=== PATIENT | female | born 1955 | race Caucasian/White ===

== ENCOUNTER → 2019-11-17 | Day surgery (SDC) | payer BC ==
[~2019-11-17] MED LIST: ACETAMINOPHEN325 M1 PO; ALEVE220 M1 PO; CALCIUM PO; FAMOTIDINE20 MG PO; FENTANYL CITRATE/PF 100MCG/2 ML INJ ONE; GABAPENTIN100 MG PO; IBUPROFEN PM C1 EACH PO; LIDOCAINE HCL 2% LOCAL INJ 5 ML SDV VIAL INJ ONE; MIDAZOLAM HCL 2 MG/2 ML VIAL ONE; MULTIVITAMINS1 EAC7 PO; PROPOFOL IV EMULSION 10 MG/ML 20 ML VIAL ONE; ULTRAM50 MG PO; VITAMIN B122500 MCG PO
--- OUTSIDE RECORDS SUMMARY | 2019-11-17 07:31 | XMS REPORT ---
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 Allergies, Adverse Reactions, Alerts This patient has no known allergies or adverse reactions. Medications This patient has no known medications. Results Test Description Test Time Test Comments Text Results Atomic Results Result Comments SCR MAMM BILATERAL VERONICA CAD DIGITAL 2019-10-03 12:42:50 - SCR MAMM BILATERAL VERONICA CAD DIGITALBILATERAL DIGITAL SCREENING MAMMOGRAM 3D/2D WITH CAD: 10/03/2019CLINICAL: Asymptomatic. Digital breast tomosynthesis was performed in addition to routine CC and MLO views. Current mammographic images were evaluated by either a [employer] M-Vu or a [employer] CAD (computer aided detection system). Comparison is made to exams dated 06/05/2015 mammogram, mammogram, and 06/14/2013 mammogram - [facility]-. There are scattered fibroglandular tissues in both breasts. No suspicious mass, architectural distortion, malignant type calcification, or lymph node abnormality detected. Breast architecture is stable compared to prior exams.IMPRESSION: NEGATIVEThere is no mammographic evidence of malignancy. Resume annual screening mammography in one year. Florin Vera M.D. ss/penrad:10/03/2019 12:42:50 Dental Therapist: Bertha HURT, [facility]-letter sent: BIRADS 1-2 Normal Mammogram BI-RADS: 1 Negative
[2019-11-17 10:35] VITALS: BP 129/73
--- NOTE | 2019-11-17 15:54 | Operative Report ---
DATE OF PROCEDURE: SURGEON: Emery Oliveira MD PROCEDURE PERFORMED: Colonoscopy. PREOPERATIVE DIAGNOSIS: History of colon cancer. POSTOPERATIVE DIAGNOSIS: Colon polyp. PREOPERATIVE MEDICATIONS: Consisted of general anesthesia. DESCRIPTION OF PROCEDURE: Using [employer] video colonoscope, it was inserted into the patient's rectum and advanced up into the sigmoid colon. Right there was anastomosis, it was free of any tumor recurrence. We advanced the scope even further and the sigmoid colon was a 1 cm sized sessile polyp, which was removed with the electrical snare cautery. The endoscope was then inserted up to the next anastomosis, which was in the right colon. This also was free of any tumor recurrence. The anastomosis laid into small intestines, which was normal. The colonoscope was withdrawn from that level back down to the rectum. No other lesions were seen. The colonoscope was withdrawn from the patient's rectum and the procedure was ended. Emery Oliveira MD SAF/MODL /[id number]
== END | disposition home or self-care (01) ==
LOC: OR 06:46
PROVIDERS: ATTEND Internal Medicine Gastroenterology
DX: Z12.11 Encounter for screening for malignant neoplasm of colon (principal); K63.5 Polyp of colon; Z98.0 Intestinal bypass and anastomosis status; Z85.038 Personal history of other malignant neoplasm of large intestine; K21.9 Gastro-esophageal reflux disease without esophagitis; R00.1 Bradycardia, unspecified; Z88.2 Allergy status to sulfonamides; Z01.812 Encounter for preprocedural laboratory examination; Z68.30 Body mass index [BMI] 30.0-30.9, adult
CPT/HCPCS: 45385; 93005; J2001; J2250; J2704; J3010